=== PATIENT | female | born 1985 | race African-American/Black ===

== ENCOUNTER 2023-04-18 05:03 | Emergency (ER) | payer MEDICAID ==
[~2023-04-18] VITALS: Ht 162.6 cm; Wt 54.4 kg
[2023-04-18 05:10] VITALS: BP 149/99
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
--- NOTE | 2023-04-18 05:41 | NUR ---
PT AMBULATES TO BATHROOM WITH STEADY GAIT.
[2023-04-18] MEDS ORDERED: MORPHINE SULFATE 2 MG/ML SYR IM STA (06:23)
[2023-04-18] MEDS ORDERED: ACETAMINOPHEN EXTRA STRENGTH 500 MG TAB PO ONE (06:25)
--- NOTE | 2023-04-18 06:48 | NUR ---
PT OFF UNIT TO CT.
--- NOTE | 2023-04-18 07:06 | NUR ---
PT BACK FROM CT.
--- NOTE | 2023-04-18 07:19 | NUR ---
PT REPORT GIVEN TO YUNIEL. ALL CARE ENDORSED, QUESTIONS AND CONCERNS ADDRESSED.
--- NOTE | 2023-04-18 07:19 | NUR ---
REPORT RECIEVED FROM DOMINICK VALENCIA FOR TRANSFER OF CARE.
[2023-04-18] MEDS ORDERED: ACET-10509 PO (07:49)
[2023-04-18] MEDS ORDERED: IBUP-2213 PO (07:49)
[2023-04-18] MEDS ORDERED: CYCL-711 PO (07:50)
[2023-04-18] MEDS ORDERED: KETOROLAC 30 MG/ML VIAL IM ONE (07:55)
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
--- NOTE | 2023-04-18 08:40 | NUR ---
Patient discharged with v/s stable. Written and verbal after care instructions given and explained. Patient verbalized understanding. Ambulatory with steady gait. All questions addressed prior to discharge. Advised to follow up with PMD.
[2023-04-18 08:41] VITALS: BP 138/79
--- NOTE | 2023-04-18 08:49 | NUR ---
The patient's care was reviewed and supervised by [facility], RN.
== END 2023-04-18 08:40 | disposition home or self-care (01) ==
LOC: MED 05:03
DX: S09.90XA Unspecified injury of head, initial encounter (principal); J45.909 Unspecified asthma, uncomplicated; F17.290 Nicotine dependence, other tobacco product, uncomplicated; F12.90 Cannabis use, unspecified, uncomplicated; Z79.899 Other long term (current) drug therapy; V89.2XXA Person injured in unspecified motor-vehicle accident, traffic, initial encounter; Y93.89 Activity, other specified; Y92.89 Other specified places as the place of occurrence of the external cause; Y99.8 Other external cause status
CPT/HCPCS: 70450; 81025; 96372; 99285; J1885; J2270